=== PATIENT | female | born 1950 | race Asian ===

== ENCOUNTER 2024-08-05 12:06 | Emergency (ER) | payer OTHER ==
[~2024-08-05] VITALS: Ht 154.9 cm; Wt 54.5 kg
[2024-08-05 12:12] VITALS: BP 164/78; PULSE 78; RESP 18; TEMP 98.1; O2SAT 100
[2024-08-05] MEDS ORDERED: ATOR40TA28 PO (12:19)
[2024-08-05] MEDS ORDERED: MAGN100T PO (12:19)
[2024-08-05] MEDS ORDERED: LOSA-381 PO (12:19)
[2024-08-05] MEDS ORDERED: CALC-1038 PO (12:19)
[2024-08-05] MEDS ORDERED: METH-386 PO (12:19)
[2024-08-05] MEDS ORDERED: AMOX-457 PO (14:18)
[2024-08-05] MEDS: PERTUSS(ACELL),DIPH,TET/PF 0.5 ML SYRINGE [ADULT] IM. ONE (14:28)
[2024-08-05] MEDS: RABIES VACCINE, HUMAN DIPLOID/PF 2.5 UNITS/ML VIAL IM. ONE (14:29)
[2024-08-05] MEDS: AMOX TR/POT CLAV 875 MG/125 MG TABLET PO ONE (14:29)
[2024-08-05] MEDS: BACITRACIN 28 GM OINTMENT TP ONE (14:29)
[2024-08-05] MEDS: RABIES IMMUNE GLOBULIN/PF 150 UNITS/ML 10 ML VIAL IM. ONE (14:29)
== END 2024-08-05 14:43 | disposition home or self-care (01) ==
LOC: EMS 12:09
DX: S61.452A Open bite of left hand, initial encounter (principal); I10 Essential (primary) hypertension; E78.00 Pure hypercholesterolemia, unspecified; Z90.49 Acquired absence of other specified parts of digestive tract; Z79.899 Other long term (current) drug therapy; W55.01XA Bitten by cat, initial encounter; Y93.89 Activity, other specified; Y92.89 Other specified places as the place of occurrence of the external cause; Y99.0 Civilian activity done for income or pay
CPT/HCPCS: 90375; 90471; 90675; 90715; 99283